=== PATIENT | male | born 1990 | race African-American/Black ===

== ENCOUNTER 2021-10-21 10:32 | Emergency (ER) | payer OTHER ==
[~2021-10-21] VITALS: Ht 170.2 cm; Wt 86.4 kg
[2021-10-21 10:37] VITALS: BP 142/93; PULSE 81; TEMP 97.7
== END 2021-10-21 11:15 | disposition home or self-care (01) ==
LOC: COL.ER 10:32
DX: S41.031A Puncture wound without foreign body of right shoulder, initial encounter (principal); Z23 Encounter for immunization; X58.XXXA Exposure to other specified factors, initial encounter; Y92.59 Other trade areas as the place of occurrence of the external cause; Y99.0 Civilian activity done for income or pay